=== PATIENT | male | born 1990 | race Caucasian/White ===

== ENCOUNTER 2020-09-16 17:39 | Emergency (ER) | payer BC ==
[2020-09-16 18:38] LABS: HEMOGLOBIN 15.5 gm/dl (14.0-17.5); RED BLOOD COUNT 4.96 M/UL (4.20-5.50); WHITE BLOOD COUNT 9.9 K/UL (4.5-11.0)
[2020-09-16 19:00] LABS: BUN/CREATININE RATIO 14 (0-10)
[2020-09-16] MEDS ORDERED: HYDROCODON-ACE1 EAC4 PO (19:41)
[2020-09-16] MEDS ORDERED: FLORASTOR250 MG PO (19:41)
[2020-09-16] MEDS ORDERED: ZOFRAN ODT 4 MG4 MG SL (19:41)
== END 2020-09-16 19:58 | disposition home or self-care (01) ==
LOC: ER1 17:39
PROVIDERS: Emergency Medicine
DX: R10.31 Right lower quadrant pain (principal); R19.7 Diarrhea, unspecified; R11.0 Nausea; F17.220 Nicotine dependence, chewing tobacco, uncomplicated
CPT/HCPCS: 80053; 81001; 85025; 99284; Q9967

== ENCOUNTER → 2020-09-23 | Outpatient (CLI) | payer BC ==
[~2020-09-23] MED LIST: FLORASTOR250 MG PO; HYDROCODON-ACE1 EAC4 PO; ZOFRAN ODT 4 MG4 MG SL
== END ==
LOC: EXRD 08:23
DX: R10.11 Right upper quadrant pain (principal); R10.811 Right upper quadrant abdominal tenderness; R10.31 Right lower quadrant pain; K76.0 Fatty (change of) liver, not elsewhere classified
CPT/HCPCS: 76705

== ENCOUNTER → 2020-10-28 | Outpatient (CLI) | payer BC | LOC: NM 13:00 | DX: R10.13 Epigastric pain (principal); R10.11 Right upper quadrant pain; R10.811 Right upper quadrant abdominal tenderness | CPT/HCPCS: 78227; A9537 ==